=== PATIENT | male | born 1965 | race Caucasian/White ===

== ENCOUNTER → 2017-01-03 16:44 | Outpatient (CLI) | payer OTHER | END | disposition home or self-care (01) | LOC: D.CT 16:44 | DX: R55 Syncope and collapse (principal) ==

== ENCOUNTER → 2017-01-31 09:36 | Outpatient (CLI) | payer OTHER ==
--- NOTE | 2017-02-04 06:41 | EEG ---
PATIENT:EVETTE MARTEL DATE OF SERVICE: 01/31/17 MEDICAL RECORD: [id number] DATE OF : 63 LOCATION: [facility] ADMISSION DATE: 01/31/17 REFERRING PHYSICIAN: INTERPRETING PHYSICIAN: NAVA CONDE MD DATE OF SERVICE: 01/31/2017 REFERRING PHYSICIAN: Dr. Casiano as an outpatient. ELECTROENCEPHALOGRAM NUMBER: [id number]. DATE OF EXAMINATION: 01/31/2017 at 10:15 a.m. DATE OF : 1965. TECHNICAL DATA: This electroencephalographic recording consists of approximately 20 minutes of data collection utilizing the international 10:20 system of electrode placement and both referential and non-referential montages. Sixteen channels of electrocerebral recording are accompanied by a 17th channel dedicated to the electrocardiographic rhythm and 2 channels of electromyographic recording. Recording is performed entirely in the waking state utilizing activation by hyperventilation and photic stimulation. ELECTROENCEPHALOGRAPHIC DATA: The awake state comprises the entirety of the recorded electrocerebral activity. Electromyographic artifact is prominent and rapid eye movements are seen. The posterior dominant background consists of a well-developed, symmetric, rhythmic, waxing and waning alpha activity of 9-10 Hz, which is suppressed by eye opening. No abnormal or focal slowing is identified. No epileptiform discharges are seen. Hyperventilation and photic stimulation induced no abnormal change in the recorded electrocerebral activity. Note is made that during hyperventilation, the patient has coughs several times. He is observed to stiffen and have some tremulousness during this, but there is no loss of consciousness and the electroencephalographic recording remains normal in the waking state. INTERPRETATION: Normal (awake). This is a normal waking electroencephalographic recording. TRANSINT:[id number] Voice Confirmation ID: [id number] DOCUMENT ID: [id number] NAVA CONDE MD at 0641 CC: [id number] DICTATION DATE: 02/02/17 0657 RISK OFFICER: 02/02/17 1228 DEP CLI 01/31/17 [facility] [address] [id number]
== END | disposition home or self-care (01) ==
LOC: D.CN 09:36
DX: R55 Syncope and collapse (principal)

== ENCOUNTER → 2017-03-20 16:41 | Outpatient (CLI) | payer OTHER | END | disposition home or self-care (01) | LOC: D.MRI 03-03 08:30 | DX: R40.4 Transient alteration of awareness (principal) ==

== ENCOUNTER 2018-05-01 11:29 | Emergency (ER) | payer OTHER ==
[~2018-05-01] VITALS: Ht 182.9 cm; Wt 60.5 kg
[2018-05-01 11:33] VITALS: Ht 182.9 cm; Wt 60.5 kg
[2018-05-01 14:45] VITALS: BP 115/83
== END 2018-05-01 14:45 | disposition home or self-care (01) ==
LOC: D.ER 11:29
DX: R10.11 Right upper quadrant pain (principal); R41.82 Altered mental status, unspecified